=== PATIENT | female | born 1970 | race American Indian/Alaskan Native ===

== ENCOUNTER 2017-08-24 07:03 | Day surgery (SDC) | payer OTHER ==
[2017-08-24] MEDS ORDERED: VERSED IV ONE ×2 (08:29→10:20)
[2017-08-24] MEDS ORDERED: SUBLIMAZE IV ONE (08:29)
[2017-08-24 09:29] LABS: Basophils % (Auto) 0.5 % (0.0-1.8); Eosinophils % (Auto) 0.9 % (0.0-4.3); Hematocrit 37.9 % (30.3-42.9); Hemoglobin 12.5 gm/dl (10.1-14.3); Lymphocytes # (Auto) 1.4 K/mm3 (1.2-5.4); Mean Corpuscular HGB Conc 33 % (30-34); Mean Corpuscular Hemoglobin 31 pg (28-32); Mean Corpuscular Volume 94 fl (79-97); Monocytes # (Auto) 0.3 K/mm3 (0.0-0.8); Monocytes % (Auto) 8.8 % (0.0-7.3); Platelet Count 133 K/mm3 (140-440); Red Blood Count 4.04 M/mm3 (3.65-5.03)
[2017-08-24 09:47] LABS: INR 0.89 (0.87-1.13)
[2017-08-24 09:48] LABS: Partial Thromboplastin Time 24.3 Sec. (24.2-36.6)
[2017-08-24] MEDS ORDERED: SUBLIMAZE ONE (10:20)
--- NOTE | 2017-08-24 11:36 | Cat Scan Report ---
CT BIOPSY BONE MARROW: HISTORY: Monoclonal paraproteinemia. DESCRIPTION OF PROCEDURE: Informed consent was obtained. Sterile technique was utilized. Conscious sedation was accomplished with Versed and fentanyl. The patient was sedated for 15 minutes. Independent cardiorespiratory monitoring by RN. Intra-observer time of [address] guidance, an introducer needle was advanced into the right posterior iliac bone. 4 aspirations and one 11-gauge bone core was obtained. Pathology was present to handle the sample. The patient tolerated the procedure without difficulty. IMPRESSION: Successful CT-guided bone marrow biopsy.
[2017-08-24 11:57] VITALS: BP 115/43
[2017-08-24 12:10] LABS: Anisocytosis 1+; Basophils % (Manual) 0 % (0.0-1.8); Ovalocytes Few; Total Cells Counted 100
== END 2017-08-24 12:40 | disposition home or self-care (01) ==
LOC: CT 07:03 → CATHLABREC 07:03 → EDSTATUS 08:30 → CATHLABREC 12:40
PROVIDERS: ATTEND Internal Medicine Hematology
DX: D47.2 Monoclonal gammopathy (principal)
CPT/HCPCS: 36415; 38221; 85007; 85025; 85097; 85610; 85730; 88184; 88185; 88230; 88291; 88305; 99156; G0364; J2250; J3010; 88161; 88311; 88313

== ENCOUNTER 2019-01-01 08:12 | Day surgery (SDC) | payer OTHER ==
[2019-01-01] MEDS ORDERED: NACL 0.9% 500 ML 500 ML ONE (09:57)
[2019-01-01] MEDS ORDERED: VERSED IV ONE (10:25)
[2019-01-01] MEDS ORDERED: SUBLIMAZE IV ONE (10:25)
[2019-01-01 10:26] LABS: Hematocrit 33.6 % (30.3-42.9); Hemoglobin 11.2 gm/dl (10.1-14.3); Mean Corpuscular HGB Conc 34 % (30-34); Mean Corpuscular Volume 95 fl (79-97); Platelet Count 113 K/mm3 (140-440); Red Blood Count 3.53 M/mm3 (3.65-5.03); Red Cell Distribution Width 13.4 % (13.2-15.2)
[2019-01-01 10:37] LABS: INR 1.09 (0.87-1.13)
[2019-01-01 10:38] LABS: Partial Thromboplastin Time 25.2 Sec. (24.2-36.6)
[2019-01-01 12:30] LABS: Total Cells Counted 100
[2019-01-01 12:31] LABS: Anisocytosis 1+; Ovalocytes Few; Platelet Estimate Consistent w Auto
--- NOTE | 2019-01-01 12:49 | Cat Scan Report ---
CT BIOPSY BONE MARROW: HISTORY: Monoclonal gammopathy. DESCRIPTION OF PROCEDURE: Informed consent was obtained. Sterile technique was utilized. Conscious sedation was accomplished with Versed and fentanyl. The patient was sedated for 15 minutes. Independent cardiorespiratory monitoring by RN. Intra-observer time of [address] guidance, an introducer needle was advanced into the right posterior iliac bone. 4 aspirations and one 11-gauge bone core was obtained. Pathology was present to handle the sample. The patient tolerated the procedure without difficulty. IMPRESSION: Successful CT-guided bone marrow biopsy.
[2019-01-01] MEDS ORDERED: SUBLIMAZE ONE ×2 (12:50→13:11)
[2019-01-01 14:26] VITALS: BP 101/54
== END 2019-01-01 14:40 | disposition home or self-care (01) ==
LOC: CT 08:12 → CATHLABREC 08:12 → EDSTATUS 08:30 → CATHLABREC 14:40
PROVIDERS: ATTEND Internal Medicine Hematology
DX: D47.2 Monoclonal gammopathy (principal); M19.90 Unspecified osteoarthritis, unspecified site; Z88.2 Allergy status to sulfonamides; Z98.51 Tubal ligation status; Z80.8 Family history of malignant neoplasm of other organs or systems; Z98.890 Other specified postprocedural states; Z86.2 Personal history of diseases of the blood and blood-forming organs and certain disorders involving the immune mechanism
CPT/HCPCS: 36415; 38222; 85007; 85025; 85097; 85610; 85730; 88184; 88185; 88230; 88291; 88305; J2250; J3010; J7040; 88161; 88311; 88313; 88333